=== PATIENT | male | born 1955 | race Caucasian/White ===

== ENCOUNTER 2017-09-04 13:01 | Emergency (ER) | payer OTHER ==
[~2017-09-04] VITALS: Ht 175.3 cm; Wt 79.4 kg
[2017-09-04] MEDS ORDERED: BRILINTA90 MG PO (13:26)
[2017-09-04] MEDS ORDERED: METOPROLOL TART50 MG PO (13:26)
[2017-09-04] MEDS ORDERED: ASPIR 8181 MG PO (13:26)
[2017-09-04] MEDS ORDERED: LISINOPRIL2.5 MG PO (13:26)
[2017-09-04] MEDS ORDERED: RANEXA500 MG PO (13:26)
[2017-09-04] MEDS ORDERED: ATORVASTATIN CA10 MG PO (13:26)
--- NOTE | 2017-09-04 13:54 | Diagnostic Imaging Report ---
PROCEDURE: Frontal and lateral views of the chest. COMPARISON: None. INDICATIONS: MID CHEST PAIN FINDINGS: Lines/tubes: None. Lungs: The lungs are well inflated and clear. There is no evidence of pneumonia or pulmonary edema. Pleura: There is no pleural effusion or pneumothorax. Heart and mediastinum: Normal heart size. Mild tortuosity of the thoracic aorta. Bones: Multilevel spondylosis of the thoracic spine IMPRESSION: 1. No acute cardiopulmonary disease. Dictated by: Nadeem Martinez M.D. on 09/04/2017 at 13:56 Electronically approved by: Nadeem Martinez M.D. on 09/04/2017 at 13:56
[2017-09-04 14:34] VITALS: BP 129/62
== END 2017-09-04 14:30 | disposition home or self-care (01) ==
LOC: EDBD 13:01 → ER 13:01
CPT/HCPCS: 71046; 93005; 99283